=== PATIENT | female | born 1955 | race Caucasian/White ===

== ENCOUNTER → 2017-03-14 | Day surgery (SDC) | payer OTHER ==
[~2017-03-14] MED LIST: ASPI-110 PO; ATEN50TA PO; BUPIVACAINE HCL PF 0.25% 30 ML VIAL ONE; BUPIVACAINE HCL PF 0.5% 10 ML VIAL ONE; CANA300T PO; CLINDAMYCIN PHOS 600 MG/4 ML VIAL ONE; DUEX800T PO; EXENINJ SQ; FURO40TA PO; IBUP-232 PO; KETOROLAC TROMETHAMINE 30 MG/ML (IVP) VIAL IV PUSH ONE; LACTATED RINGER'S 1000 ML INJ 1,000 ML ONE; LANTUS2P SQ; LEFL20 PO; LOSA100T PO; MIDAZOLAM HCL 2 MG/2 ML VIAL ONE; OMEP40CA2 PO; ONDANSETRON HCL 4 MG/2 ML VIAL IV PUSH ONE; PROPOFOL 200 MG/20 ML AMP IV ONE; SODIUM CHLORIDE 0.9% INJ 100 ML IV ONE; TRAM50TA PO; TYLE650T9
--- NOTE | 2017-03-14 21:19 | MP ---
cc: TIM MAI DPM DATE OF SURGERY: 03/14/2017 PREOPERATIVE DIAGNOSIS: Left fifth digit hammertoe with prominent fifth metatarsal / Tailor's bunion, bunionette deformity. POSTOPERATIVE DIAGNOSIS Left fifth digit hammertoe with prominent fifth metatarsal / Tailor's bunion, bunionette deformity. PROCEDURES PERFORMED 1. Left fifth digit arthroplasty PIPJ 2. Fifth metatarsal osteotomy with screw fixation. MATERIALS USED Synthes x2 screws. 2.0 screws. SPECIMEN None ESTIMATED BLOOD LOSS Less than 10 ml COMPLICATIONS None. ANESTHESIA: General with local, 20 cc of 0.25% Marcaine plain. DRAINS: None. TOURNIQUET TIME: 32 minutes at a setting of 215 mmHg about the patient's left ankle. PLAN OF ACTIVITY: PACU, then DC home when stable per Same-Day Surgery criteria. JUSTIFICATION FOR PROCEDURE: The patient is a 61 year-old female with worsening pain and inability to wear normal shoes. We devised a plan to move forward with the previously stated procedure. She understood stiffness, numbness, possible need for screw removal at a later date. PROCEDURE IN DETAIL Under mild sedation the patient is brought to the operating room, placed on the operating table in the supine position. Following the induction of general anesthesia, local anesthesia was obtained about the lateral forefoot utilizing standard block fashion. The patient's left foot was then scrubbed, prepped and draped in the usual aseptic fashion. The foot was elevated, exsanguinated and a previously placed mid ankle tourniquet was inflated 215 mmHg. Incision was made over the dorsal lateral aspect of the patient's fifth digit PIPJ which coursed in the mid shaft of the fifth metatarsal. Sharp and blunt dissection was carried down to the extensor tendon. Z-tendon lengthening approach took place freeing up capsular adhesions. Next sharp and blunt dissection was carried down to the level of the PIPJ. There was noted to be a prominent dorsal lateral eminence of the proximal phalanx head. This was then severed utilizing power instrumentation to a better contour. The wound was flushed with copious amounts of normal saline. Next sharp and blunt dissection was carried down to the level of the fifth MPJ. A linear capsulotomy was performed revealing a prominent dorsal lateral eminence. This was transected utilizing power instrumentation. Offset V osteotomy was performed of the fifth metatarsal with a longer dorsal arm. It was transposed medially 3 to 4 millimeters and fixated utilizing proper AO technique x2 dorsal screws. There was noted to be compression across the osteotomy site. The prominent redundant proximal shelf was transected completing the bunionette procedure. The wound was flushed with copious amounts of normal saline. Capsule and tendon was repaired utilizing Vicryl. Skin was closed utilizing nylon. Fluoroscopy was used during the procedure visualizing the correction. A bulky bandage placed. There is noted to be capillary fill time return to the digit upon relieving the tourniquet. The patient was then positioned within a controlled ankle motion boot. She is heel-weightbear only. She will follow up within 3-5 days. BACILIO Carballo /1:48 PM /9:11 PM
== END | disposition home or self-care (01) ==
LOC: ESDC 10:54
PROVIDERS: ATTEND Podiatrist Foot & Ankle Surgery
DX: M20.42 Other hammer toe(s) (acquired), left foot (principal); M21.622 Bunionette of left foot; E11.9 Type 2 diabetes mellitus without complications; Z79.4 Long term (current) use of insulin
CPT/HCPCS: 01480; 28285; 28308; 73620; 76000; 82948; C1713; J1885; J2250; J2405; J3010; J7120